=== PATIENT | male | born 1990 | race Caucasian/White ===

== ENCOUNTER 2025-01-30 19:16 | Emergency (ER) | payer OTHER, SELFPAY ==
--- NOTE | ~2025-01-30 | XR_ITS ---
EXAMINATION: XR chest 2V 01/30/2025 19:57 INDICATION: Chest pain PROCEDURE: 2 view chest COMPARISON: No prior studies for comparison. FINDINGS: The lungs are clear. The cardiomediastinal silhouette is within normal limits. There are no pleural effusions. There is no pneumothorax suspected. IMPRESSION: 1: NO ACUTE CARDIOPULMONARY DISEASE. Reviewed, dictated and finalized at location O. BRUSH ARTIST
--- NOTE | 2025-01-30 19:21 | ECG_ITS ---
Test Date: 2025-01-30 19:26:52 Measurements Intervals [place] Rate: 94 P: 36 UT: 153 QRS: 86 QRSD: 87 T: 60 QT: 340 QTc: 427 Interpretive Statements SINUS RHYTHM No previous ECG available for comparison Electronically Signed On 01-30-2025 21:28:28 DIRECTOR [employer]RECTIONAL [employer]ENCY by Jakob Schuster M.D.
[2025-01-30 19:22] VITALS: BP 135/94; PULSE 99; RESP 18; TEMP 37; O2SAT 99
[2025-01-30 19:41] LABS: Hematocrit 47.9 % (42.0-52.0); Hemoglobin 16.7 g/dL (14.0-18.0); Immature Granulocyte Percent A 0.3 % (0-0.5); Lymphocytes Absolute Auto 3.67 K/mm3 (0.9-3.2); Mean Corpuscular HGB Conc 34.9 g/dl (32-36); Mean Corpuscular Hemoglobin 32.2 pg (26-34); Mean Corpuscular Volume 92.3 fl (80-100); Nucleated Red Blood Cells Absolute Auto 0.000 K/mm3 (0.0-0.012); Nucleated Red Blood Cells Perc 0.0 % (0.0-0.2); Platelet Count Result 307 k/mm3 (150-375); Red Blood Count 5.19 M/mm3 (4.6-6.20); White Blood Count 9.9 K/mm3 (4.5-10.0)
--- NOTE | 2025-01-30 19:42 | PC.NURSE ---
pt states i'm going out for a smoke , pt advised not to due to stated symptoms.
[2025-01-30 19:49] LABS: Alanine Aminotransferase 65 U/L (6-50); Albumin Level 4.6 g/dL (3.5-5.1); Alkaline Phosphatase 69 U/L (38-126); Anion Gap 12 mmol/L (4-12); Aspartate Amino Transferase 56 U/L (17-59); Bilirubin,Total 0.7 mg/dL (0.2-1.3); Blood Urea Nitrogen 11 mg/dL (9-20); Calcium 8.8 mg/dL (8.4-10.2); Carbon Dioxide 23 mmol/L (22-30); Chloride 106 mmol/L (98-107); Estimated CRCL calculation 108 ml/min; Estimated Glomerular Filt Rate > 60; Glucose 97 mg/dL (65-110); Lipase 142 U/L (23-300); Potassium 3.9 mmol/L (3.4-5.0); Sodium 141 mmol/L (137-145); Total Protein 7.7 g/dL (6.3-8.2)
[2025-01-30 19:51] LABS: INR 0.8; Prothrombin Time 11.6 Seconds (11.1-14.7)
[2025-01-30 19:53] LABS: Partial Thromboplastin Time 23.1 Seconds (22.3-36.8)
[2025-01-30 21:13] LABS: Troponin I < 0.012 ng/mL (0.000-0.034)
--- NOTE | 2025-01-30 22:33 | ECG_ITS ---
Test Date: 2025-01-30 23:07:34 Measurements Intervals [place] Rate: 83 P: 55 MA: 181 QRS: 71 QRSD: 86 T: 58 QT: 380 QTc: 449 Interpretive Statements SINUS RHYTHM Compared to ECG 01/30/2025 19:26:52 No significant changes Electronically Signed On 01-31-2025 06:38:12 [employer]ING [employer]ANT [employer]PERATOR by Jakob Schuster M.D.
--- NOTE | 2025-01-30 23:08 | ED_ITS ---
HPI - Chest Pain General Chief Complaint: Chest Pain Stated Complaint: chest pain Time Seen by Provider: 01/30/25 22:20 History of Present Illness HPI narrative: This is a 34-year-old male with a history of anxiety and PTSD presenting for chest pain and palpitations. Patient states he is going through a divorce has caused him a significant amount of distress. He has been drinking more than usual. Yesterday he developed nausea, vomiting, and diarrhea overnight. He attributes this to the C he had beforehand. Then when he woke up he developed pain on the right side of his chest. It is reproducible with palpitation. Associated w/ some right arm numbness. He also has palpitations and increased anxiety. patient denies fevers chills, shortness of breath abdominal pain. He does not know any injury to his chest. 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 Related Data Allergies Allergy/AdvReac Type Severity Reaction Status Date / Time No Known Allergies Allergy Verified 01/30/25 19:17 Exam 2 Narrative: APPEARANCE: anxious appearing Head: atraumatic. EYES: EOMI, NOSE: Atraumatic NECK: Trachea midline RESPIRATORY: No increased rate of breathing, clear to auscultation CARDIOVASCULAR: RRR, no peripheral edema ABDOMINAL: Non-distended soft nontender MUSCULOSKELETAl: reproducible tenderness over right upper pectoral, no overlying skin changes NEURO: Alert. Moving 4/4 extremities SKIN:: Warm, dry. Normal color PSYCHIATRIC: Normal affect Course Vital Signs Vital signs: Vital Signs Temperature 98.6 F 01/30/25 19:22 Pulse Rate 99 01/30/25 19:22 Respiratory Rate 18 01/30/25 19:22 Blood Pressure 135/94 H 01/30/25 19:22 Pulse Oximetry 99 01/30/25 19:22 Oxygen Delivery Room Air 01/30/25 19:22 Temperature 98.6 F 01/30/25 19:22 Pulse Rate 99 01/30/25 19:22 Respiratory Rate 18 01/30/25 19:22 Blood Pressure 135/94 H 01/30/25 19:22 Pulse Oximetry 100 01/30/25 23:26 Oxygen Delivery Room Air 01/30/25 23:26 MDM - Chest Pain MDM Narrative Medical decision making narrative: -Course: 34-year-old male history of anxiety and increased stressors in his personal life presenting with multiple complaints including nausea vomiting diarrhea, reproducible right-sided chest wall pain and palpitations. Many of his symptoms seem to be related to increased anxiety over his recent force. His chest pain workup was negative. Laboratory studies and chest x-ray within normal limits. Patient received Valium with considerable improvement in his condition. He is comfortable being discharged follow-up his primary care physician. Return precautions given -DDX includes but is not limited to: stress reaction, anxiety, MSK pain, ACS, pneumothorax PE Lab Data 01/30/25 19:33 01/30/25 19:33 Labs: Lab Results 01/30/25 01/30/25 Range/Units 19:33 22:46 WBC 9.9 (4.5-10.0) K/mm3 RBC 5.19 (4.6-6.20) M/mm3 Hgb 16.7 (14.0-18.0) g/dL Hct 47.9 (42.0-52.0) % MCV 92.3 (80-100) fl MCH 32.2 (26-34) pg MCHC 34.9 (32-36) g/dl RDW 12.2 (11.5-14.5) % Plt Count 307 (150-375) k/mm3 MPV 8.7 (7.4-10.4) fl Immature Gran % (Auto) 0.3 (0-0.5) % Neut % (Auto) 51.5 (45.5-73.1) % Lymph % (Auto) 37.1 (18.3-44.2) % [place] % (Auto) 7.1 (2.6-8.5) % Eos % (Auto) 3.0 (0-4.4) % Baso % (Auto) 1.0 (0.2-1.2) % Lymph # (Auto) 3.67 H (0.9-3.2) K/mm3 [place] # (Auto) 0.7 H (0.1-0.6) K/mm3 Eos # (Auto) 0.3 (0-0.3) K/mm3 Baso # (Auto) 0.1 (0.0-0.1) K/mm3 Abs Immat Gran (auto) 0.03 (0.00-0.031) K/mm3 Absolute Neuts (auto) 5.1 (1.3-6.7) K/mm3 Absolute Nucleated RBC 0.000 (0.0-0.012) K/mm3 Nucleated RBC % 0.0 (0.0-0.2) % PT 11.6 (11.1-14.7) Seconds INR 0.8 APTT 23.1 (22.3-36.8) Seconds Sodium 141 (137-145) mmol/L Potassium 3.9 (3.4-5.0) mmol/L Chloride 106 (98-107) mmol/L Carbon Dioxide 23 (22-30) mmol/L Anion Gap 12 (4-12) mmol/L BUN 11 (9-20) mg/dL Creatinine 0.93 (0.7-1.3) mg/dL Estim Creat Clear Calc 108 ml/min Estimated GFR > 60 (59 - ) Glucose 97 (65-110) mg/dL Calcium 8.8 (8.4-10.2) mg/dL Total Bilirubin 0.7 (0.2-1.3) mg/dL AST 56 (17-59) U/L ALT 65 H (6-50) U/L Alkaline Phosphatase 69 (38-126) U/L Troponin I < 0.012 < 0.012 (0.000-0.034) ng/mL Total Protein 7.7 (6.3-8.2) g/dL Albumin 4.6 (3.5-5.1) g/dL Lipase 142 (23-300) U/L Discharge Plan Discharge Clinical Impression: Chest wall pain, Anxiety Patient Disposition: Home Condition: Stable Instructions: Antibiotic Form, Chest Wall Pain (ED) Additional Instructions: You were seen in the emergency department for chest pain palpitations. Your chest pain is likely musculoskeletal pain. Please use Motrin Tylenol as needed. Please follow-up with your primary care physician for further management. If you develop chest pain, shortness of breath or any new or worsening symptoms he can return to ED re-evaluation. Patient Language: Korean Follow-up/Referrals: Jefry Knight MD [Physician, Family Practice] - 1 Week UNKNOWN,DOCTOR [Non-Staff]
[2025-01-30 23:13] LABS: Troponin I < 0.012 ng/mL (0.000-0.034)
[2025-01-30] MEDS: diazePAM INJ (*CRX) 10 MG/2 ML SYRINGE 5 MG IV PUSH (23:15)
[2025-01-30] MEDS: KETOROLAC 15 MG/ML VIAL (*BKC) IV PUSH (23:17)
[2025-01-30 23:26] VITALS: O2SAT 100
[2025-01-31 00:20] VITALS: BP 136/85; PULSE 72; RESP 16; O2SAT 99
== END 2025-01-31 00:22 | disposition home or self-care (01) ==
PROVIDERS: Emergency Provider Emergency Medicine
DX: R07.89 Other chest pain (principal); F41.9 Anxiety disorder, unspecified
CPT/HCPCS: 36415; 71046; 80053; 83690; 84484; 85025; 85610; 85730; 93005; 96374; 96375; 99284; J1885; J3360